=== PATIENT | female | born 1935 | race Caucasian/White ===

== ENCOUNTER → 2018-07-25 | Outpatient (REF) | payer MEDICARE, OTHER ==
[2018-07-25 13:53] LABS: BASO % 0.3 % (0.0-1.0); EOS # 0.1 10^3/uL (0.0-0.50); EOS % 1.2 % (0.0-3.0); HEMATOCRIT 42.5 % (36.0-47.0); HEMOGLOBIN 13.2 g/dl (12.0-15.5); IMMATURE GRANULOCYTE % 0.7 % (0-3.0); LYMPH # 1.5 10^3/uL (1.5-4.5); LYMPH % 17.8 % (24.0-44.0); MEAN CORPUSCULAR HEMOGLOBIN 32.4 pg (27.0-33.0); MEAN CORPUSCULAR HGB CONC 31.1 g/dl (32.0-36.5); MEAN CORPUSCULAR VOLUME 104.4 fl (80.0-96.0); MONO # 0.8 10^3/uL (0.0-0.8); MONO % 8.8 % (0.0-5.0); NEUTROPHILS # 6.1 10^3/uL (1.8-7.7); NEUTROPHILS % 71.2 % (36.0-66.0); PLATELET COUNT, AUTOMATED 184 10^3/uL (150-450); RED BLOOD COUNT 4.07 10^6/uL (4.00-5.40); RED CELL DISTRIBUTION WIDTH 13.8 % (11.5-14.5); WHITE BLOOD COUNT 8.6 10^3/uL (4.0-10.0)
[2018-07-25 14:51] LABS: ALBUMIN 3.7 GM/DL (3.2-5.2); ALKALINE PHOSPHATASE 93 U/L (45-117); ALT/SGPT 14 U/L (12-78); ANION GAP 3 MEQ/L (8-16); AST/SGOT 14 U/L (7-37); BILIRUBIN,TOTAL 0.6 MG/DL (0.2-1.0); BLOOD UREA NITROGEN 11 MG/DL (7-18); CALCIUM LEVEL 8.7 MG/DL (8.8-10.2); CARBON DIOXIDE LEVEL 31 MEQ/L (21-32); CHLORIDE LEVEL 110 MEQ/L (98-107); CREATININE FOR GFR 1.06 MG/DL (0.55-1.30); FOLATE 23.3 NG/ML; GLOMERULAR FILTRATION RATE 52.8 (>32); GLUCOSE, FASTING 104 MG/DL (70-100); POTASSIUM SERUM 3.7 MEQ/L (3.5-5.1); SODIUM LEVEL 144 MEQ/L (136-145); TOTAL PROTEIN 6.9 GM/DL (6.4-8.2)
[2018-07-25 16:36] LABS: ALBUMIN/GLOBULIN RATIO 1.16 (1.00-1.93)
[2018-07-26 14:18] LABS: CERULOPLASMIN 24.4 mg/dL (19.0-39.0)
[2018-07-28 14:14] LABS: COPPER PLASMA 108 ug/dL (72-166)
[2018-07-28 14:14] LABS: LEVETIRACETAM (KEPPRA) 15.2 ug/mL (10.0-40.0)
[2018-07-31 15:02] LABS: ALBUMIN 4.04 GM/DL (3.29-5.55); ALBUMIN % 58.6 % (55.8-66.1); ALPHA-1-GLOBULINS 0.36 GM/DL (0.17-0.41)
[2018-07-31 15:03] LABS: ALPHA-1-GLOBULIN % 5.2 % (2.9-4.9); ALPHA-2-GLOBULINS 0.72 GM/DL (0.42-0.99); ALPHA-2-GLOBULINS % 10.4 % (7.1-11.8); BETA-1-GLOBULINS 0.43 GM/DL (0.28-0.60); BETA-1-GLOBULINS % 6.3 % (4.7-7.2); BETA-2-GLOBULINS 0.33 GM/DL (0.19-0.55); BETA-2-GLOBULINS % 4.8 % (3.2-6.5); GAMMA GLOBULIN % 14.7 % (11.1-18.8); GAMMA GLOBULINS 1.01 GM/DL (0.65-1.58)
== END ==
LOC: M LABNEURO 10:37
DX: T56.4X2S Toxic effect of copper and its compounds, intentional self-harm, sequela (principal); G62.9 Polyneuropathy, unspecified; R56.9 Unspecified convulsions; E53.8 Deficiency of other specified B group vitamins
CPT/HCPCS: 82525

== ENCOUNTER → 2018-08-14 | Outpatient (CLI) | payer MEDICARE, OTHER | LOC: M RAD 14:41 | DX: Z86.73 Personal history of transient ischemic attack (TIA), and cerebral infarction without residual deficits (principal) | CPT/HCPCS: 93880 ==

== ENCOUNTER → 2018-11-24 | Outpatient (CLI) | payer MEDICARE, OTHER ==
--- NOTE | 2018-11-24 11:29 | REP ---
Unilateral arterial Doppler ultrasound right leg: History: Pain in the right thigh. Findings: Ankle brachial index is 1.1. Essentially normal biphasic wave forms are seen throughout the right lower extremity arteries. Fairly extensive plaquing is observed however. No evidence of high-grade stenosis seen. Velocity chart right lower extremity arteries: Right CF A 101 cm/S Profunda 101 Proximal SFA 118, 78 Mid SFA 90, 108 Distal SFA 86, 70 Popliteal 60 Proximal AT A 67 Tibioperoneal trunk 65 Proximal RESTAURANT RECRUITER 70 Distal RESTAURANT RECRUITER 60 Distal AT A 55, 54, 11. Cm/S Electronically Signed by Sanjeev Cook MD 11/24/2018 11:20 A
== END ==
LOC: M RAD 09:48
PROVIDERS: ATTEND Surgery Vascular Surgery
DX: I73.9 Peripheral vascular disease, unspecified (principal); M79.651 Pain in right thigh

== ENCOUNTER → 2018-12-06 | Outpatient (CLI) | payer MEDICARE, OTHER ==
[2018-12-06 16:14] LABS: BASO % 0.3 % (0.0-1.0); EOS % 0.6 % (0.0-3.0); HEMATOCRIT 36.1 % (36.0-47.0); HEMOGLOBIN 11.8 g/dl (12.0-15.5); LYMPH # 1.5 10^3/uL (1.5-4.5); LYMPH % 21.1 % (24.0-44.0); MEAN CORPUSCULAR HEMOGLOBIN 33.1 pg (27.0-33.0); MEAN CORPUSCULAR HGB CONC 32.7 g/dl (32.0-36.5); MEAN CORPUSCULAR VOLUME 101.4 fl (80.0-96.0); MONO # 0.8 10^3/uL (0.0-0.8); MONO % 11.8 % (0.0-5.0); NEUTROPHILS # 4.5 10^3/uL (1.8-7.7); NEUTROPHILS % 65.6 % (36.0-66.0); PLATELET COUNT, AUTOMATED 188 10^3/uL (150-450); RED BLOOD COUNT 3.56 10^6/uL (4.00-5.40); WHITE BLOOD COUNT 6.9 10^3/uL (4.0-10.0)
[2018-12-06 16:31] LABS: CALCIUM LEVEL 9.1 MG/DL (8.8-10.2); CREATININE FOR GFR 1.52 MG/DL (0.55-1.30); GLOMERULAR FILTRATION RATE 34.9 (>32); POTASSIUM SERUM 3.1 MEQ/L (3.5-5.1)
== END ==
LOC: M LAB 15:05
PROVIDERS: ATTEND Surgery Vascular Surgery
DX: I70.213 Atherosclerosis of native arteries of extremities with intermittent claudication, bilateral legs (principal)

== ENCOUNTER → 2018-12-25 | Outpatient (CLI) | payer MEDICARE, OTHER ==
[~2018-12-25] MED LIST: HEPARIN 1,000 UNITS/ML 10ML VIAL (FOR RADIOLOGY& DIALYSIS ONLY) As Ordered ONE; ISOVUE-300 61% 50ML VIAL (Q9967) As Ordered ONE; LIDOCAINE 2% MDV 20 ML VIAL As Ordered ONE; MIDAZOLAM INJ 2 MG/2 ML VIAL (J2250) As Ordered ONE; fentaNYL 100 MCG/2 ML INJECTION (J3010) As Ordered ONE
--- NOTE | 2019-01-10 11:38 | REPIR ---
DATE OF PROCEDURE: 12/25/2018 ATTENDING SURGEON: Dr. April Melendez SIZING MACHINE TENDER: Brinda Robles and Yue Fierro PREOPERATIVE DIAGNOSIS: Right lower extremity pain. POSTOPERATIVE DIAGNOSIS: Right lower extremity pain. PROCEDURE: Aortogram, iliofemoral angiogram, selective right common femoral artery catheter placement with right lower extremity angiogram, MYNX closure of the left common femoral arteriotomy. INDICATION: The patient is an 83 year old female with right lower extremity pain in the thigh who underwent an ultrasound which showed mild to moderate diffuse atherosclerotic arterial occlusive disease in the right lower extremity. The patient will undergo a right lower extremity angiogram with possible angioplasty stent and/or atherectomy. Risks, benefits and alternative treatment options were discussed with the patient. ANESTHESIA: Local with 10 mL of 2% lidocaine. FLUORO TIME: 1.0 minutes. CONTRAST: 12 mL of Isovue-300. HEPARIN: None. COMPLICATIONS: None. DRAINS: None. SPECIMENS: None. IMPLANT: Left common femoral arteriotomy closure with a MYNX closure device. DESCRIPTION OF PROCEDURE: The patient was taken to the angiography suite, placed supine on the angiography room table and then prepped and draped in a standard surgical fashion. The left common femoral artery was cannulated with a micropuncture needle after anesthetizing the overlying skin with 2% lidocaine. The micropuncture wire was advanced through the micropuncture needle which was upsized to a micropuncture sheath. A Bentson wire was advanced through the micropuncture sheath which was upsized to a 5-Wolof sheath. An Omni flush catheter was placed in the aorta and an aortogram was performed. The catheter was pulled down to the level of the bifurcation of iliac arteries and an iliofemoral angiogram was performed. The catheter was directed over the bifurcation of the iliac arteries and placed in the right common femoral artery and a selective right lower extremity angiogram was performed. This showed no intervention was required. The catheters and wires were removed and a MYNX closure device was used to close the arteriotomy in the left common femoral artery with an additional 10 minutes of adjunctive pressure applied for hemostasis. Dressings were then applied. The patient tolerated the procedure well. All instrument, sponge, and needle counts were correct at the end of the case. There were no complications. Dr. Melendez was present for and directed the entire case. The patient was transferred to the holding area and subsequently discharged in stable condition.
== END | disposition home or self-care (01) ==
LOC: M IRPRO 07:40
PROVIDERS: ATTEND Surgery Vascular Surgery
DX: I70.201 Unspecified atherosclerosis of native arteries of extremities, right leg (principal)
CPT/HCPCS: 36246; 75710; C1760; C1769; C1887; C1894; G0269; J2250; J3010; Q9967

== ENCOUNTER 2019-04-26 15:01 | Outpatient (CLI) | payer MEDICARE, OTHER ==
[~2019-04-26] VITALS: Ht 157.5 cm; Wt 56.9 kg
[2019-04-26] MEDS ORDERED: ZOLEDRONIC ACID 5 MG in APPROPRIATE DILUENT 1 EA IV ONE (16:00)
[2019-04-26 16:04] VITALS: BP 135/66
[2019-04-26 16:42] VITALS: BP 147/70
== END 2019-04-26 17:00 | disposition home or self-care (01) ==
LOC: M INFU 15:01
PROVIDERS: ATTEND Internal Medicine Endocrinology, Diabetes & Metabolism
DX: M81.0 Age-related osteoporosis without current pathological fracture (principal)
CPT/HCPCS: 96365; J3489

== ENCOUNTER → 2019-10-23 | Outpatient (CLI) | payer MEDICARE, OTHER ==
--- NOTE | 2019-10-23 15:15 | REP ---
BILATERAL LOWER EXTREMITY DUPLEX DOPPLER ARTERIAL ULTRASOUND: Real-time sonographic evaluation and duplex Doppler interrogation of bilateral lower extremity arterial systems is performed. Mild scattered partially calcified plaquing is seen bilaterally. There is no duplex Doppler sonographic evidence of hemodynamically significant stenosis bilaterally. Triphasic and biphasic waveforms are seen diffusely bilaterally. Right Peak Left Peak Systolic Velocity Systolic velocity Common femoral artery 89 cm/s 105 cm/s Profunda 71 cm/s 102 cm/s Proximal SFA 118 cm/s 99 cm/s Mid SFA 93 cm/s 123 cm/s Distal SFA 59 cm/s 68 cm/s Popliteal 59 cm/s 69 cm/s Proximal MAXX 51 cm/s 36 cm/s Tibial peroneal trunk 53 cm/s 65 cm/s Proximal CLINICAL NURSE LEADER 79 cm/s 100 cm/s Distal CLINICAL NURSE LEADER 90 cm/s 80 cm/s Distal MAXX 123 cm/s 53 cm/s IMPRESSION: Scattered partially calcified plaquing bilaterally. No duplex Doppler sonographic evidence of hemodynamically significant stenosis. Unreviewed
== END ==
LOC: M RAD 12:44
PROVIDERS: ATTEND Physician Assistant
DX: I70.213 Atherosclerosis of native arteries of extremities with intermittent claudication, bilateral legs (principal)

== ENCOUNTER 2019-11-18 12:39 | Inpatient (IN) | payer MEDICARE, OTHER ==
[~2019-11-18] VITALS: Ht 157.5 cm; Wt 45.5 kg
[2019-11-18 15:30] VITALS: BP 118/52
[2019-11-18] MEDS ORDERED: XARE15TA PO (16:27)
[2019-11-18] MEDS ORDERED: VENTAER INH (16:27)
[2019-11-18] MEDS ORDERED: DONE10TA90 PO (16:27)
[2019-11-18] MEDS ORDERED: IRON65TA2 PO (16:27)
[2019-11-18] MEDS ORDERED: DIGO0.123 PO (16:27)
[2019-11-18] MEDS ORDERED: ESCI20TA PO (16:27)
[2019-11-18] MEDS ORDERED: PANT-23 PO (16:27)
[2019-11-18] MEDS ORDERED: METO25TA4 PO (16:27)
[2019-11-18] MEDS ORDERED: PRESCAP PO (16:27)
[2019-11-18] MEDS ORDERED: ATOR1TAB19 PO (16:27)
[2019-11-18] MEDS ORDERED: VITA1CAP25 PO (16:27)
[2019-11-18] MEDS ORDERED: LEVE250T5 PO (16:27)
[2019-11-18] MEDS ORDERED: CYCL10TA PO (16:27)
[2019-11-18] MEDS ORDERED: POTA10CA32 PO (16:27)
[2019-11-18] MEDS ORDERED: METO1TAB7 PO (16:27)
[2019-11-18] MEDS ORDERED: ZOFR4TAB16 PO (16:27)
[2019-11-18] MEDS ORDERED: RANI15TA PO (16:27)
[2019-11-18] MEDS ORDERED: MELA5CAP2 PO (16:27)
[2019-11-18] MEDS ORDERED: TRAM50TA2 PO (16:27)
[2019-11-18 16:30] LABS: BASO % 0.2 % (0.0-1.0); EOS # 0.1 10^3/uL (0.0-0.5); EOS % 1.5 % (0.0-3.0); HEMATOCRIT 22.8 % (36.0-47.0); LYMPH # 1.3 10^3/uL (1.5-5.0); LYMPH % 23.8 % (24.0-44.0); MEAN CORPUSCULAR HEMOGLOBIN 25.2 pg (27.0-33.0); MEAN CORPUSCULAR HGB CONC 28.1 g/dl (32.0-36.5); MEAN CORPUSCULAR VOLUME 89.8 fl (80.0-96.0); MONO # 0.6 10^3/uL (0.0-0.8); MONO % 10.8 % (0.0-5.0); NEUTROPHILS # 3.4 10^3/uL (1.5-8.5); NEUTROPHILS % 63.3 % (36.0-66.0); PLATELET COUNT, AUTOMATED 237 10^3/uL (150-450); RED BLOOD COUNT 2.54 10^6/uL (4.00-5.40); WHITE BLOOD COUNT 5.4 10^3/uL (4.0-10.0)
[2019-11-18 16:32] LABS: HEMOGLOBIN 6.4 g/dl (12.0-15.5)
[2019-11-18 16:41] LABS: INR 1.23; PROTHROMBIN TIME 15.2 SECONDS (11.8-14.0)
[2019-11-18 16:42] LABS: PARTIAL THROMBOPLASTIN TIME 33.3 SECONDS (25.0-38.4)
[2019-11-18] MEDS ORDERED: SLF 3 ML SYR IV PRN (17:00)
[2019-11-18 17:02] LABS: ALBUMIN 2.7 GM/DL (3.2-5.2); BILIRUBIN,TOTAL 0.1 MG/DL (0.2-1.0); CALCIUM LEVEL 8.4 MG/DL (8.8-10.2); CREATININE FOR GFR 1.24 MG/DL (0.55-1.30); TOTAL PROTEIN 5.2 GM/DL (6.4-8.2)
[2019-11-18 18:00] LABS: PERCENT SATURATION 2.4 % (13.2-45.0)
[2019-11-18] MEDS ORDERED: FUROSEMIDE 20 MG/2 ML VIAL (J1940) IV ONE (19:30)
--- NOTE | 2019-11-18 19:52 | HPEPDOC ---
General Date of Admission Nov 18, 2019 at 15:28 Date of Service: Nov 18, 2019 Chief Complaint The patient is a 84-year-old female admitted with a reason for visit of Gi Bleed. Source: Patient, Old records Exam Limitations: Dementia History of Present Illness 84 year old female went to the ED of [facility] as she had 3 syncopal episodes at home yesterday. Work up the ED at outside hospital showed a Hb of 6.4. Her last Hbs from jul 2019 was 10.7 and 12.7 . She was found to be guaic positive int ED. So she was transferred here for symptomatic anemia due to GIB. Patient tells me that she has been feeling very weak and light headed for t he past 1 month. She has had 9 presyncopal and syncopal episodes in the past 3 weeks. The during the first one she fell and hit her head on the floor about 2 to 3 weeks ago. Her legs has been weak and it would suddenly give way and that would cause her to fall. She says she has been having soft back stools for the past 2 months. She says that she does not take the iron as it makes her constipated. She does take Vit B12 shots. She denies any abdominal pain or vomiting. She was admitted for symtomatic anemia from possible chronic GIB and syncopal episodes. Home Medications Scheduled Atorvastatin Calcium (Atorvastatin Calcium) 10 Mg Tablet, 10 MG PO DAILY, (Reported) Cholecalciferol (Vitamin D3) (Vitamin D3) 50,000 Unit Capsule, 50,000 UNIT PO QWEEK, (Reported) Cyclobenzaprine HCl (Cyclobenzaprine HCl) 10 Mg Tablet, 10 MG PO TID, (Reported) Digoxin (Digoxin) 125 Mcg Tablet, 125 MCG PO DAILY, (Reported) Donepezil HCl (Donepezil HCl) 10 Mg Tablet, 10 MG PO DAILY, (Reported) Escitalopram Oxalate (Escitalopram Oxalate) 20 Mg Tablet, 20 MG PO DAILY, (Reported) Ferrous Sulfate (Iron) 325 Mg Tablet, 325 MG PO DAILY, (Reported) Levetiracetam (Levetiracetam) 250 Mg Tablet, 250 MG PO BID, (Reported) Melatonin (Melatonin) 5 Mg Capsule, 5 MG PO QHS, (Reported) Pantoprazole Sodium (Pantoprazole Sodium) 40 Mg Tablet.dr, 40 MG PO DAILY, (Reported) Potassium Chloride (Potassium Chloride) 10 Meq Capsule.er, 10 MEQ PO DAILY, (Reported) TAKES WITH DIURETIC PRN - WILL VERIFY WITH Ranitidine Hcl (Ranitidine HCl) 150 Mg Tablet, 1 TAB PO BID, (Reported) Rivaroxaban (Xarelto) 15 Mg Tablet, 15 MG PO DAILY, (Reported) Vit A/Vit C/Vit E/Zinc/Copper (Preservision Areds Softgel) 1 Each Capsule, 1 CAP PO BID, (Reported) Scheduled PRN Albuterol Sulfate (Ventolin Hfa) 18 Gm Hfa.aer.ad, 2 PUFF INH Q4-6HP PRN for wheezing, (Reported) Metoprolol Succinate (Metoprolol Succinate) 50 Mg Tab.er.24h, 50 MG PO DAILY PRN for HYPERTENSION, (Reported) Metoprolol Tartrate (Metoprolol Tartrate) 25 Mg Tablet, 25 MG PO DAILY PRN for H YPERTENSION, (Reported) Ondansetron HCl (Zofran) 4 Mg Tablet, 4 MG PO DAILY PRN for NAUSEA OR VOMITING, (Reported) Tramadol HCl (Tramadol HCl) 50 Mg Tablet, 50 MG PO Q8H PRN for PAIN, (Reported) Allergies Coded Allergies: propoxyphene (Verified Allergy, Unknown, 04/26/19) Past Medical History Medical History Colon cancer s/p surgery and chemo in the remote past Dementia, CKD 3 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 Paroxysmal Afib on xarelto pacemaker in place Hypertension GERD Hiatal hernia s/p hiatal hernia surgery Bilateral hip replacement Appendectomy Hystrectomy Small bowel resection chronic back pain Iron deficiency Vit B12 deficiency. Family History Significant Family History: No pertinent family hx patient said parent of old age. Other family member's with some medical issues could not remember what. Social History * Smoker: Denies Alcohol: Denies Drugs: denies A-FIB/CHADSVASC A-FIB History Current/History of A-Fib/PAF?: Yes Current PO Anticoag Therapy: Yes Review of Systems Constitutional: Reports: Weakness; Denies: Chills, Fever, Night Sweats Eyes: Denies: Pain, Vision change ENT: Denies: Head Aches, Ear Pain, Dysphagia Skin: Denies: Rash, Lesions, Breakdown Pulmonary: Denies: Dyspnea, Cough Cardiovascular: Reports: Lt Headedness; Denies: Chest Pain, Palpitations, Orthopnea, Paroxysmal Noc. Dyspnea Gastrointestinal: Reports: Other Symptoms (soft black stools); Denies: Nausea, Vomiting, Abdominal Pain, Diarrhea Genitourinary: Denies: Dysuria, Frequency, Incontinence, Retention Hematologic: Denies: Bruising, Bleeding Excessively Musculoskeletal: Reports: Back Pain Psych: Reports: Mood Normal, Memory Issues Physical Examination General Exam: Positive: Alert, Cooperative, No Acute Distress Eye Exam: Positive: PERRLA, Conjunctiva & lids normal, EOMI; Negative: Sclera icteric ENT Exam: Positive: Atraumatic, Mucous membr. moist/pink, Pharynx Normal Neck Exam: Positive: Supple, Other (bilateral carotid bruit present); Negative: JVD, thyromegaly Chest Exam: Positive: Clear to auscultation, Normal air movement Heart Exam: Positive: Rate Normal, Regular Rhythm, Normal S1, Normal S2, Murmurs (sysolic murmur at eh perasternal area); Negative: Rubs Telemetry: Positive: No significant arrhythmia, Sinus Abdomen Exam: Positive: Normal bowel sounds, Soft; Negative: Tenderness, Hepatospenomegaly Extremity Exam: Positive: Normal pulses; Negative: Clubbing, Cyanosis, Edema Skin Exam: Positive: Nl turgor and temperature; Negative: Breakdown, Lesion Neuro Exam: Positive: Normal Gait, Normal Speech, Cranial Nerves 3-12 NL, Reflexes 2+ Vital Signs Vital Signs Date Time Temp Pulse Resp B/P (MAP) Pulse Ox O2 Delivery O2 Flow Rate FiO2 11/18/19 16:00 2.0 11/18/19 15:30 96.8 91 24 118/52 (74) 100 Nasal Cannula Laboratory Data Labs 24H Laboratory Tests 2 11/18/19 16:18: Immature Granulocyte % (Auto) 0.4, Neutrophils (%) (Auto) 63.3, Lymphocytes (%) (Auto) 23.8L, Monocytes (%) (Auto) 10.8H, Eosinophils (%) (Auto) 1.5, Basophils (%) (Auto) 0.2, Neutrophils # (Auto) 3.4, Lymphocytes # (Auto) 1.3L, Monocytes # (Auto) 0.6, Eosinophils # (Auto) 0.1, Basophils # (Auto) 0.0, Nucleated Red Blood Cells % (auto) 0.0, Prothrombin Time 15.2H, Prothromb Time International Ratio 1.23, Activated Partial Thromboplast Time 33.3, Anion Gap 5L, Glomerular Filtration Rate 44.0, Calcium Level 8.4L, Total Bilirubin 0.1L, Aspartate Amino Transf (AST/SGOT) 10, Alanine Aminotransferase (ALT/SGPT) 8L, Alkaline Phosphatase 51, Total Protein 5.2L, Albumin 2.7L, Albumin/Globulin Ratio 1.08 11/18/19 17:17: Iron Level 7L, Total Iron Binding Capacity 289, Transferrin % Saturation 2.4L, Ferritin 6L CBC/BMP Laboratory Tests 11/18/19 16:18 Assessment/Plan 84 year old female went to the ED of [facility] as she had 3 syncopal episodes at home yesterday. Work up the ED at outside hospital showed a Hb of 6.4. Her last Hbs from jul 2019 was 10.7 and 12.7 . She was found to be guaic positive int ED. So she was transferred here for symptomatic anemia due to GIB. Patient tells me that she has been feeling very weak and light headed for the past 1 month. She has had 9 presyncopal and syncopal episodes in the past 3 weeks. The during the first one she fell and hit her head on the floor about 2 to 3 weeks ago. Her legs has been weak and it would suddenly give way and that would cause her to fall. She says she has been having soft back stools for the past 2 months. She says that she does not take the iron as it makes her constipated. She does take Vit B12 shots. She denies any abdominal pain or vomiting. She was admitted for symtomatic anemia from possible chronic GIB and syncopal episodes. Symptomatic anemia possibly due to chronic GIB bleed Her iron levels are very low and her guic was postive at outside hospital Will need Colonoscopy/ EGD Has h/o colon ca.in the remote past. will give 2 units of PRBC with lasix in between. will give PPI. Stop Xarelto. last dose 11/18/19 will consult GI. Hiatal hernia/ GERD h/o hiatal hernia surgery PPI Syncope possibly due to severe anemia but with h/o afib will monitor under telemetry CT head from outside hospital on 11/17/19 was negative for any acute event. will get carotid dopplers. Paroxysmal Afib now in sinus Has pacemeker in place. will continue digozin will not give any metoprolol at present as Bp was low at outside hospital and here well controlled. Hold xarelto. Dementia continue donepezil, escitalopram Seizure disorder contiue keppra h/o TIAs and [place] will continue statin, Plan / VTE VTE Prophylaxis Ordered?: No NIKHIL COLLIER MD Nov 18, 2019 19:52
[2019-11-18 20:00] VITALS: BP 120/70
[2019-11-18] MEDS ORDERED: ALBUTEROL 90 MCG/ACT 8GM HFA INHALER INH PRN (20:00)
[2019-11-18 21:45] VITALS: BP 118/60
[2019-11-18] MEDS: SLF 3 ML SYR IV SCH (21:54)
[2019-11-18] MEDS: PANTOPRAZOLE 40MG INJ (PROTONIX) (C9113) IV SCH (21:54)
[2019-11-18] MEDS: levETIRAcetam 250MG TABLET (KEPPRA) PO SCH (21:54)
[2019-11-18 22:00] VITALS: BP 120/64
[2019-11-18 22:45] VITALS: BP 116/64
[2019-11-18 23:45] VITALS: BP 116/68
[2019-11-19] VITALS (13 sets, daily range): BP systolic 115–152; BP diastolic 58–84
[2019-11-19] MEDS: SLF 3 ML SYR IV SCH ×3 (05:23→22:17)
[2019-11-19] MEDS: PANTOPRAZOLE 40MG INJ (PROTONIX) (C9113) IV SCH ×2 (08:11→22:16)
[2019-11-19] MEDS: levETIRAcetam 250MG TABLET (KEPPRA) PO SCH ×2 (08:11→22:16)
[2019-11-19] MEDS: DONEPEZIL 5 MG TAB PO SCH (08:12)
[2019-11-19] MEDS: ESCITALOPRAM OXALATE 10 MG TAB (LEXAPRO) PO SCH (08:12)
[2019-11-19] MEDS: ATORVASTATIN 10 MG TAB PO SCH (08:12)
[2019-11-19] MEDS: DIGOXIN 0.125 MG TAB PO SCH (08:12)
[2019-11-19 08:51] LABS: BASO % 0.3 % (0.0-1.0); EOS # 0.1 10^3/uL (0.0-0.5); EOS % 1.8 % (0.0-3.0); HEMATOCRIT 33.9 % (36.0-47.0); HEMOGLOBIN 10.2 g/dl (12.0-15.5); LYMPH % 16.1 % (24.0-44.0); MEAN CORPUSCULAR HEMOGLOBIN 26.9 pg (27.0-33.0); MEAN CORPUSCULAR HGB CONC 30.1 g/dl (32.0-36.5); MEAN CORPUSCULAR VOLUME 89.4 fl (80.0-96.0); MONO # 0.6 10^3/uL (0.0-0.8); MONO % 9.3 % (0.0-5.0); NEUTROPHILS # 4.4 10^3/uL (1.5-8.5); NEUTROPHILS % 72.2 % (36.0-66.0); PLATELET COUNT, AUTOMATED 268 10^3/uL (150-450); RED BLOOD COUNT 3.79 10^6/uL (4.00-5.40)
[2019-11-19 09:21] LABS: CALCIUM LEVEL 8.5 MG/DL (8.8-10.2); CREATININE FOR GFR 1.3 MG/DL (0.55-1.30); GLOMERULAR FILTRATION RATE 41.6 (>32); POTASSIUM SERUM 3.8 MEQ/L (3.5-5.1)
--- NOTE | 2019-11-19 10:37 | IPNPDOC ---
Subjective Date Seen The patient was seen on 11/19/19. Subjective Chief Complaint/HPI No acute events overnight. patient feeing well. received 2 units of PRBC. Denies any abdominal pain, no bowel movements. Objective Physical Examination General Exam: Positive: Alert, Cooperative, No Acute Distress Eye Exam: Positive: PERRLA, Conjunctiva & lids normal, EOMI; Negative: Sclera icteric ENT Exam: Positive: Atraumatic, Mucous membr. moist/pink, Pharynx Normal Neck Exam: Positive: Supple, Other (bilateral carotid bruit present); Negative: JVD, thyromegaly Chest Exam: Positive: Clear to auscultation, Normal air movement Heart Exam: Positive: Rate Normal, Regular Rhythm, Normal S1, Normal S2, Murmurs (sysolic murmur at perasternal area); Negative: Rubs Telemetry: Positive: No significant arrhythmia, Sinus Abdomen Exam: Positive: Normal bowel sounds, Soft; Negative: Tenderness, Hepatospenomegaly Extremity Exam: Positive: Normal pulses; Negative: Clubbing, Cyanosis, Edema Skin Exam: Positive: Nl turgor and temperature; Negative: Breakdown, Lesion Neuro Exam: Positive: Normal Gait, Normal Speech, Cranial Nerves 3-12 NL, Reflexes 2+ Assessment /Plan Assessment 84 year old female went to the ED of [facility] as she had 3 syncopal episodes at home yesterday. Work up the ED at outside hospital showed a Hb of 6.4. Her last Hbs from jul 2019 was 10.7 and 12.7 . She was found to be guaic positive int ED. So she was transferred here for symptomatic anemia due to GIB. Patient tells me that she has been feeling very weak and light headed for the past 1 month. She has had 9 presyncopal and syncopal episodes in the past 3 weeks. The during the first one she fell and hit her head on the floor about 2 to 3 weeks ago. Her legs has been weak and it would suddenly give way and that would cause her to fall. She says she has been having soft back stools for the past 2 months. She says that she does not take the iron as it makes her constipated. She does take Vit B12 shots. She denies any abdominal pain or vomiting. She was admitted for symptomatic anemia from possible chronic GIB and syncopal episodes. Symptomatic anemia possibly due to chronic GIB bleed Her iron levels are very low and her guaiac was positive at outside hospital Will need Colonoscopy/ EGD Has h/o colon ca.in the remote past. given 2 units of PRBC with lasix in between. monitor HH will give PPI. Stop Xarelto. last dose 11/18/[address] Santiago. Hiatal hernia/ GERD h/o hiatal hernia surgery PPI Syncope possibly due to severe anemia but with h/o afib will monitor under telemetry CT head from outside hospital on 11/17/19 was negative for any acute event. will get carotid dopplers. Paroxysmal Afib now in sinus Has pacemaker in place. will continue digoxin will not give any metoprolol at present as Bp was low at outside hospital and here well controlled. Hold xarelto. Dementia continue donepezil, escitalopram Seizure disorder continue keppra h/o TIAs and Stroke will continue statin Hypertension BP rising today will restart metoprolol VS, I&O, 24H, Fishbone Vital Signs/I&O Vital Signs Date Time Temp Pulse Resp B/P (MAP) Pulse Ox O2 Delivery O2 Flow Rate FiO2 11/19/19 05:33 97.5 105 18 150/84 97 Room Air 11/19/19 04:00 3.0 I&O- Last 24 Hours up to 6 AM 11/19/19 05:59 Intake Total 820 ml Output Total 2000 ml Balance -1180 ml Laboratory Data 24H LABS Laboratory Tests 2 11/18/19 16:18: Immature Granulocyte % (Auto) 0.4, Neutrophils (%) (Auto) 63.3, Lymphocytes (%) (Auto) 23.8L, Monocytes (%) (Auto) 10.8H, Eosinophils (%) (Auto) 1.5, Basophils (%) (Auto) 0.2, Neutrophils # (Auto) 3.4, Lymphocytes # (Auto) 1.3L, Monocytes # (Auto) 0.6, Eosinophils # (Auto) 0.1, Basophils # (Auto) 0.0, Nucleated Red Blood Cells % (auto) 0.0, Prothrombin Time 15.2H, Prothromb Time International Ratio 1.23, Activated Partial Thromboplast Time 33.3, Anion Gap 5L, Glomerular Filtration Rate 44.0, Calcium Level 8.4L, Total Bilirubin 0.1L, Aspartate Amino Transf (AST/SGOT) 10, Alanine Aminotransferase (ALT/SGPT) 8L, Alkaline Phosphatase 51, Total Protein 5.2L, Albumin 2.7L, Albumin/Globulin Ratio 1.08 11/18/19 17:17: Iron Level 7L, Total Iron Binding Capacity 289, Transferrin % Saturation 2.4L, Ferritin 6L CBC/BMP Laboratory Tests 11/18/19 16:18 NIKHIL COLLIER MD Nov 19, 2019 06:49
[2019-11-19] MEDS: METOPROLOL SUCC (TopROL XL) 50MG **XL** TAB PO SCH (11:54)
--- NOTE | 2019-11-19 12:19 | REP ---
DUPLEX CAROTID SONOGRAPHY: HISTORY: Carotid bruit. Syncope. COMPARISON STUDY: August 14, 2018 FINDINGS: Antegrade flow was observed in both vertebral arteries. RIGHT CAROTID: The right common carotid artery shows minimal diffuse intimal thickening. There is mild mixed plaquing in the bulb, proximal ICA, and proximal ECA on the right side on two-dimensional scanning. This appears unchanged. Color flow and spectral Doppler interrogation show normal waveforms and velocities. VELOCITY CHART RIGHT CAROTID: Right CCA PSV 79 cm/s Right ICA PSV 75 EDV 27 Right ECA PSV 78 Right ICA/CCA ratio normal 1.0. IMPRESSION: Less than 50% category narrowing in the right ICA by Doppler velocity criteria. Doppler velocities are normal. LEFT CAROTID: The left common carotid artery shows mild diffuse intimal thickening. There is moderate mixed plaquing in the left carotid bulb and proximal ICA and ECA on two-dimensional scanning. Color flow and spectral Doppler interrogation are unremarkable. VELOCITY CHART LEFT CAROTID: Left CCA PSV 77 cm/s Left ICA PSV 96 EDV 17 Left ECA PSV 80 Left ICA/CCA ratio normal 1.2. IMPRESSION: Less than 50% category narrowing by Doppler velocity criteria. Doppler velocities are slightly higher than on the prior study. Electronically Signed by Sanjeev Cook MD 11/19/2019 12:26 P
[2019-11-19 12:55] LABS: HEMATOCRIT 36.3 % (36.0-47.0); HEMOGLOBIN 10.9 g/dl (12.0-15.5)
[2019-11-19 18:16] LABS: HEMATOCRIT 35.3 % (36.0-47.0)
[2019-11-19] MEDS ORDERED: IRON SUCROSE 500 MG in NS 250 ML IV ONE (20:00)
[2019-11-19] MEDS: CYANOCOBALAMIN 1,000 MCG/ML VIAL (J3420) IM SCH (22:16)
[2019-11-20] VITALS (7 sets, daily range): BP systolic 139–169; BP diastolic 62–82
[2019-11-20 00:09] LABS: HEMATOCRIT 30.9 % (36.0-47.0); HEMOGLOBIN 9.7 g/dl (12.0-15.5)
[2019-11-20] MEDS: SLF 3 ML SYR IV SCH ×3 (04:36→20:43)
[2019-11-20 05:49] LABS: BASO % 0.4 % (0.0-1.0); EOS # 0.2 10^3/uL (0.0-0.5); HEMATOCRIT 33.6 % (36.0-47.0); HEMOGLOBIN 10.4 g/dl (12.0-15.5); LYMPH # 1.8 10^3/uL (1.5-5.0); LYMPH % 23.4 % (24.0-44.0); MEAN CORPUSCULAR HEMOGLOBIN 27.3 pg (27.0-33.0); MEAN CORPUSCULAR VOLUME 88.2 fl (80.0-96.0); MONO # 0.9 10^3/uL (0.0-0.8); MONO % 11.5 % (0.0-5.0); NEUTROPHILS # 4.7 10^3/uL (1.5-8.5); NEUTROPHILS % 62.2 % (36.0-66.0); PLATELET COUNT, AUTOMATED 291 10^3/uL (150-450); RED BLOOD COUNT 3.81 10^6/uL (4.00-5.40); WHITE BLOOD COUNT 7.6 10^3/uL (4.0-10.0)
[2019-11-20 06:13] LABS: CALCIUM LEVEL 8.5 MG/DL (8.8-10.2); CREATININE FOR GFR 1.11 MG/DL (0.55-1.30); POTASSIUM SERUM 4.3 MEQ/L (3.5-5.1)
[2019-11-20] MEDS: levETIRAcetam 250MG TABLET (KEPPRA) PO SCH ×2 (08:22→20:42)
[2019-11-20] MEDS: ESCITALOPRAM OXALATE 10 MG TAB (LEXAPRO) PO SCH (08:22)
[2019-11-20] MEDS: DIGOXIN 0.125 MG TAB PO SCH (08:22)
[2019-11-20] MEDS: PANTOPRAZOLE 40MG INJ (PROTONIX) (C9113) IV SCH ×2 (08:22→20:42)
[2019-11-20] MEDS: DONEPEZIL 5 MG TAB PO SCH (08:22)
[2019-11-20] MEDS: METOPROLOL SUCC (TopROL XL) 50MG **XL** TAB PO SCH (08:23)
[2019-11-20] MEDS: ATORVASTATIN 10 MG TAB PO SCH (08:23)
[2019-11-20] MEDS: CYANOCOBALAMIN 1,000 MCG/ML VIAL (J3420) IM SCH (10:09)
--- NOTE | 2019-11-20 15:18 | IPNPDOC ---
Text Note Date of Service The patient was seen on 11/20/19. NOTE Subjective: -Doing well this morning, no complaints -Was seen by Dr. Santiago, has already started taking the golytely for scoping tomorrow Objective: Vitals: Hemodynamically stable and afebrile, see below General: Awake, alert, NAD HEENT: NCAT, PERRLA, EOMI, MMM Neck: No JVD or adenopathy, supple Pulm: CTAB Cardaic: 2/6 systolic murmur, otherwise RRR Abd: Normoactive, soft, nontender and no organomegaly or masses palpated Ext: WWP, no LE edema Labs: Hgb 10.4, Hct 33.6, WBC 7.6, Platelets 291, K 4.3, Cr 1.11 84 year old W who was admitted as a transfer from [place] ED for syncope and found to have symptomatic anemia due to GIB with FOBT, now s/p pRBCs transfusion and pending EGD/colonoscopy tomorrow. Symptomatic anemia -Likely 2/2 chronic GIB bleed -s/p IV iron and IV vitamin B12 -pending Colonoscopy/ EGD tomorrow with ongoing prep today, with a remote history of colon cancer -continue PPI. -continue holding Xarelto -consulted GI, Dr Santiago, pending scoping tomorrow Hiatal hernia/ GERD h/o hiatal hernia surgery PPI Syncope -Likely due to severe anemia, however with a h/o afib, will monitor with telemetry -CT head from outside hospital on 11/17/19 was negative for any acute events -no clinically significant stenotic disease on carotid dopplers. Paroxysmal Afib -currently in sinus -s/p PPM -continue digoxin -continue metoprolol -continue holding Xarelto Dementia -continue donepezil, escitalopram Seizure disorder -continue keppra h/o TIAs and Stroke -continue statin -hold xarelto in the setting of an ongoing GIB Hypertension -continue home metoprolol Dispo: PCU pending EGD/colo tomorrow for GIB VS,Fishbone, I+O VS, Fishbone, I+O Laboratory Tests 11/19/19 17:57 11/19/19 23:49 11/20/19 05:34 Vital Signs Date Time Temp Pulse Resp B/P (MAP) Pulse Ox O2 Delivery O2 Flow Rate FiO2 11/20/19 12:00 97.6 70 16 145/73 (97) 95 Room Air 11/19/19 08:00 3.0 I&O- Last 24 Hours up to 6 AM 11/20/19 06:00 Intake Total 1240 ml Output Total 700 ml Balance 540 ml RAFAEL SANCHEZ MD Nov 20, 2019 15:18
[2019-11-20] MEDS ORDERED: GOLYTELY SOLN 4000 ML BTL PO ONE (17:00)
--- NOTE | 2019-11-20 23:44 | CR ---
DATE OF CONSULTATION: 11/19/2019 An 84-year white female who presents to emergency room with multiple syncopal episodes. The patient was found to have a hemoglobin of 6.4. No complaints of abdominal pain, weight loss, change in bowel habits, fevers, night sweats, shaking chills, melena, hematochezia, or change in bowel habits. No apparent history of weight loss. She is status post subtotal colectomy for colon cancer in 2011. The patient is being seen for her anemia of unclear etiology. MEDICATIONS AT HOME: Include atorvastatin, digoxin, iron, Protonix, potassium, ranitidine and the patient is on Xarelto. PAST MEDICAL/SURGICAL HISTORY: 1, Positive for colon cancer, status post surgery. 2. Mild dementia. 3. Chronic renal disease. 4. Transient ischemic attacks (TIAs) and CVA. No residual. 5. Seizure. 6. History of brain aneurysm surgery 15 years ago. 7. Paroxysmal atrial fibrillation, on Xarelto. 8. Hypertension. 9. Reflux. 10. Hiatal hernia repair. 11. Bilateral hip replacement. 12. Appendectomy. 13. Hysterectomy. 14. Previous history of bowel resection for the colon cancer. SOCIAL HISTORY: Cigarettes, alcohol, drugs - negative. 12-point review of systems is negative for the above problem. The patient is a well-developed, thin white female in no obvious acute distress. Appears stated age. Chest is clear. Cardiovascular Exam: Showed irregular rhythm. No murmurs or gallops. Normal physiological split, S1, S2. Abdomen: Soft, nontender. No masses, guarding, rebound, hepatosplenomegaly. Bowel sounds positive. Extremities: No cyanosis, clubbing, edema. LABORATORY STUDIES: On admission shows a white count of 5400, hemoglobin and hematocrit was 6.4 and 22.8. The patient's INR was 1.23. The patient's chemistry was normal on admission. The patient's imaging studies on admission were noncontributory to the above problem. ANALYSIS: Anemia of unknown etiology in a patient who is status post colon cancer resection. Plan will be set the patient up for an upper and lower endoscopy for further evaluation of her anemia. The patient has been given 2 units of packed cells, and her most recent hemoglobin and hematocrit is 10.4 and 33.6. PLAN: 1. Esophagogastroduodenoscopy (EGD) and colonoscopy. 2. Xarelto needs to be stopped.
[2019-11-21] VITALS (8 sets, daily range): BP systolic 127–178; BP diastolic 59–75
[2019-11-21] MEDS ORDERED: GLUCOSE 4 GM CHEW TABLET PO PRN (03:45)
[2019-11-21] MEDS ORDERED: GLUCAGON FOR INJ 1 MG VIAL (J1610) SC PRN (03:45)
[2019-11-21] MEDS ORDERED: DEXTROSE 50% 50 ML SYRINGE IV PRN (03:45)
[2019-11-21] MEDS: NS 1,000 ML IV SCH ×3 (04:07→15:30)
[2019-11-21] MEDS: SLF 3 ML SYR IV SCH ×3 (05:12→20:28)
[2019-11-21 05:55] LABS: BASO % 0.3 % (0.0-1.0); EOS # 0.1 10^3/uL (0.0-0.5); EOS % 1.6 % (0.0-3.0); HEMATOCRIT 33.7 % (36.0-47.0); HEMOGLOBIN 10.5 g/dl (12.0-15.5); LYMPH # 1.5 10^3/uL (1.5-5.0); LYMPH % 20.6 % (24.0-44.0); MEAN CORPUSCULAR HEMOGLOBIN 27.3 pg (27.0-33.0); MEAN CORPUSCULAR HGB CONC 31.2 g/dl (32.0-36.5); MEAN CORPUSCULAR VOLUME 87.5 fl (80.0-96.0); MONO # 0.9 10^3/uL (0.0-0.8); MONO % 11.8 % (0.0-5.0); NEUTROPHILS # 4.8 10^3/uL (1.5-8.5); NEUTROPHILS % 65.3 % (36.0-66.0); PLATELET COUNT, AUTOMATED 279 10^3/uL (150-450); RED BLOOD COUNT 3.85 10^6/uL (4.00-5.40); WHITE BLOOD COUNT 7.4 10^3/uL (4.0-10.0)
[2019-11-21 06:15] LABS: CALCIUM LEVEL 8.5 MG/DL (8.8-10.2); GLOMERULAR FILTRATION RATE 56.4 (>32); POTASSIUM SERUM 4.1 MEQ/L (3.5-5.1)
[2019-11-21] MEDS: DONEPEZIL 5 MG TAB PO SCH (09:10)
[2019-11-21] MEDS: ATORVASTATIN 10 MG TAB PO SCH (09:10)
[2019-11-21] MEDS: CYANOCOBALAMIN 1,000 MCG/ML VIAL (J3420) IM SCH (09:10)
[2019-11-21] MEDS: PANTOPRAZOLE 40MG INJ (PROTONIX) (C9113) IV SCH ×2 (09:10→20:28)
[2019-11-21] MEDS: levETIRAcetam 250MG TABLET (KEPPRA) PO SCH ×2 (09:11→20:28)
[2019-11-21] MEDS: METOPROLOL SUCC (TopROL XL) 50MG **XL** TAB PO SCH (09:11)
[2019-11-21] MEDS: ESCITALOPRAM OXALATE 10 MG TAB (LEXAPRO) PO SCH (09:11)
[2019-11-21] MEDS: DIGOXIN 0.125 MG TAB PO SCH (09:11)
--- NOTE | 2019-11-21 11:18 | IPNPDOC ---
Text Note Date of Service The patient was seen on 11/21/19. NOTE Subjective: -Doing well this morning, no complaints -Tolerated golytely prep ok -Pending scoping with Dr. Santiago this AM -On maintenance IVF while NPO Objective: Vitals: Hemodynamically stable and afebrile, see below General: Awake, alert, NAD HEENT: NCAT, PERRLA, EOMI, MMM Neck: No JVD or adenopathy, supple Pulm: CTAB Cardaic: 2/6 systolic murmur, otherwise RRR Abd: Normoactive, soft, nontender and no organomegaly or masses palpated Ext: WWP, no LE edema Labs: Reviewed Hgb 10.5, Hct 33.7, WBC 7.4, Platelets 279, K 4.1, Cr 1.00 84 year old W who was admitted as a transfer from [facility] for syncope and found to have symptomatic anemia due to GIB with +FOBT, now s/p pRBCs transfusion with stable H/H and pending EGD/colonoscopy today. Symptomatic anemia -Most likely 2/2 chronic GIB bleed -s/p IV iron and IV vitamin B12 -pending Colonoscopy/ EGD this AM, of note with a remote history of colon cancer -continue BID PPI -continue holding home Xarelto -consulted GI, Dr Santiago, pending scoping this AM -Daily H/H Hiatal hernia/ GERD -h/o hiatal hernia surgery -PPI as above Syncope -Likely due to severe anemia, however with a h/o afib, continue monitoring with telemetry -CT head from outside hospital on 11/17/19 was negative for any acute events -no clinically significant stenotic disease on carotid dopplers. Paroxysmal Afib -currently in sinus -s/p PPM -continue digoxin -continue metoprolol -continue holding Xarelto Dementia -continue donepezil, escitalopram Seizure disorder -continue keppra h/o TIAs and Stroke -continue statin -hold xarelto in the setting of recent GIB Hypertension -continue home metoprolol Dispo: PCU pending EGD/colo today for GIB VS,Fishbone, I+O VS, Fishbone, I+O Laboratory Tests 11/21/19 05:30 Vital Signs Date Time Temp Pulse Resp B/P (MAP) Pulse Ox O2 Delivery O2 Flow Rate FiO2 11/21/19 04:00 98.0 71 16 127/59 (81) 100 Room Air 11/19/19 08:00 3.0 I&O- Last 24 Hours up to 6 AM 11/21/19 06:00 Intake Total 1460 ml Output Total 520 ml Balance 940 ml RAFAEL SANCHEZ MD Nov 21, 2019 08:46
[2019-11-21] MEDS ORDERED: PROPOFOL 200 MG/20 ML VIAL As Ordered ONE ×2 (12:41→13:14)
[2019-11-21] MEDS ORDERED: LIDOCAINE 2% INJ 100 MG/5 ML SDV (FOR ANES.) As Ordered ONE (12:41)
--- NOTE | 2019-11-21 13:42 | ROOR ---
Patient Name: Joanie Clark Procedure Date: 11/21/2019 12:55 PM Date of : 1935 Age: 84 Room: [facility] Gender: Female Note Status: Finalized Procedure: Colonoscopy to anastomosis Indications: Unexplained iron deficiency anemia Providers: Bertin Santiago MD Referring MD: 2. Inpatient 2. Inpatient Requesting Provider: Medicines: Monitored Anesthesia Care Complications: No immediate complications. Procedure: Pre-Anesthesia Assessment: - The heart rate, respiratory rate, oxygen saturations, blood pressure, adequacy of pulmonary ventilation, and response to care were monitored throughout the procedure. The Colonoscope was introduced through the anus and advanced to the ileocolonic anastomosis. The colonoscopy was performed without difficulty. The patient tolerated the procedure well. The quality of the bowel preparation was excellent. Findings: The perianal and digital rectal examinations were normal. Non-bleeding internal hemorrhoids were found during retroflexion. The hemorrhoids were small and Grade I (internal hemorrhoids that do not prolapse). Multiple small and large-mouthed diverticula were found in the recto-sigmoid colon, sigmoid colon and descending colon. There was evidence of a prior end-to-end ileo-colonic anastomosis in the cecum. This was patent. The anastomosis was traversed. The exam was otherwise without abnormality. Impression: - Non-bleeding internal hemorrhoids. - Diverticulosis in the recto-sigmoid colon, in the sigmoid colon and in the descending colon. - Patent end-to-end ileo-colonic anastomosis. - The examination was otherwise normal. - No specimens collected. - The examination was otherwise normal. Recommendation: - Patient has a contact number available for emergencies. The signs and symptoms of potential delayed complications were discussed with the patient. Return to normal activities tomorrow. Written discharge instructions were provided to the patient. - High fiber diet. - Return patient to [facility] for ongoing care. - Continue present medications. - Return to referring physician. - The findings and recommendations were discussed with the patient's family. Bertin Santiago MD Bertin Santiago MD 11/21/2019 1:41:48 PM Electronically signed by Bertin Santiago MD Number of Addenda: 0 Note Initiated On: 11/21/2019 12:55 PM Estimated Blood Loss: Estimated blood loss: none.
[2019-11-22 04:00] VITALS: BP 150/60
[2019-11-22] MEDS: SLF 3 ML SYR IV SCH (05:46)
[2019-11-22 06:19] LABS: BASO % 0.3 % (0.0-1.0); EOS # 0.1 10^3/uL (0.0-0.5); EOS % 1.4 % (0.0-3.0); HEMATOCRIT 32.9 % (36.0-47.0); LYMPH # 1.8 10^3/uL (1.5-5.0); LYMPH % 23.4 % (24.0-44.0); MEAN CORPUSCULAR HEMOGLOBIN 26.8 pg (27.0-33.0); MEAN CORPUSCULAR HGB CONC 30.4 g/dl (32.0-36.5); MEAN CORPUSCULAR VOLUME 88.2 fl (80.0-96.0); MONO # 0.9 10^3/uL (0.0-0.8); MONO % 11.4 % (0.0-5.0); NEUTROPHILS # 4.8 10^3/uL (1.5-8.5); PLATELET COUNT, AUTOMATED 269 10^3/uL (150-450); RED BLOOD COUNT 3.73 10^6/uL (4.00-5.40); WHITE BLOOD COUNT 7.7 10^3/uL (4.0-10.0)
[2019-11-22 06:45] LABS: BLOOD UREA NITROGEN 7 MG/DL (7-18); CALCIUM LEVEL 7.8 MG/DL (8.8-10.2); CARBON DIOXIDE LEVEL 23 MEQ/L (21-32); CHLORIDE LEVEL 115 MEQ/L (98-107); CREATININE FOR GFR 0.86 MG/DL (0.55-1.30); GLOMERULAR FILTRATION RATE > 60.0 (>32); GLUCOSE, FASTING 93 MG/DL (70-100); POTASSIUM SERUM 3.7 MEQ/L (3.5-5.1); SODIUM LEVEL 144 MEQ/L (136-145)
[2019-11-22 07:32] VITALS: BP 174/73
[2019-11-22] MEDS: DONEPEZIL 5 MG TAB PO SCH (09:25)
[2019-11-22] MEDS: ESCITALOPRAM OXALATE 10 MG TAB (LEXAPRO) PO SCH (09:25)
[2019-11-22] MEDS: METOPROLOL SUCC (TopROL XL) 50MG **XL** TAB PO SCH (09:26)
[2019-11-22] MEDS: ATORVASTATIN 10 MG TAB PO SCH (09:26)
[2019-11-22] MEDS: PANTOPRAZOLE 40MG INJ (PROTONIX) (C9113) IV SCH (09:26)
[2019-11-22] MEDS: DIGOXIN 0.125 MG TAB PO SCH (09:26)
[2019-11-22] MEDS: levETIRAcetam 250MG TABLET (KEPPRA) PO SCH (09:26)
--- NOTE | 2019-11-22 10:49 | DS.PDOC ---
Discharge Summary General Date of Admission Nov 18, 2019 at 15:28 Date of Discharge 11/22/2019 Attending Physician: RAFAEL SANCHEZ MD Specialist/Consultants Involve: Bertin Santiago Discharge Summary PROCEDURES PERFORMED DURING STAY: colonoscopy on 11/21/2019 ADMITTING DIAGNOSES: 1. GIB DISCHARGE DIAGNOSES: 1. Lower GIB with diverticulosis and internal hemorrhoids 2. Remote history of colon cancer s/p surgery and chemo 3. CKD 3 4. Histoyr of seizures 5. History brain aneurysm surgery more 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 6. Paroxysmal Afib on xarelto 7. pacemaker in place 8. Hypertension 9. GERD 10. History of hiatal hernia s/p hiatal hernia surgery 11. chronic back pain 12. Iron deficiency 13. Vit B12 deficiency. COMPLICATIONS/CHIEF COMPLAINT: Gi Bleed. HISTORY OF PRESENT ILLNESS: 84 year old W who presented to the ED at [facility] after 3 syncopal episodes the day prior to presentation. Her ED work up revealed a Hgb of 6.4, from her last Hgb from jul 2019 was 10.7 and 12.7 . She was also found to be guaiac positive and was transferred to [facility] for symptomatic anemia 2/2 a GIB. HOSPITAL COURSE: At [facility], she reported feeling very weak and light headed for the past 1 month, with a total of 9 presyncopal and syncopal episodes in the past 3 weeks, as well as soft melena for 2 months and had not taken any iron recently because it made her constipated but had remained on Vit B12 shots. She otherwise did not have any abdominal pain or vomiting. While here at [facility] she received a total of 2u pRBC with stabilization of her H/H and today is 10/32.9. GI was consulted and she had a colonoscopy on 11/21 that revealed diverticulosis and non bleeding internal hemorrhoids and no new masses or polyps with a patent anastomosis from her prior surgery for remote colon CA. GI recommended a high fiber diet and continuation of her home PPI and xarelto. She also received IV iron and B12 and was placed on BID PPI. She is now being discharged home after clearing PT to follow up with her PCP and GI outpatient. DISCHARGE MEDICATIONS: Please see below. ALLERGIES: Please see below. PHYSICAL EXAMINATION ON DISCHARGE: VITAL SIGNS: Please see below. Vitals: Hemodynamically stable and afebrile, see below General: Awake, alert, NAD HEENT: NCAT, PERRLA, EOMI, MMM Neck: No JVD or adenopathy, supple Pulm: CTAB Cardaic: 2/6 systolic murmur, otherwise RRR Abd: Normoactive, soft, nontender and no organomegaly or masses palpated Ext: WWP, no LE edema LABORATORY DATA: Please see below. IMAGING: Carotid doppler vascular US for syncope presentation: RIGHT CAROTID: The right common carotid artery shows minimal diffuse intimal thickening. There is mild mixed plaquing in the bulb, proximal ICA, and proximal ECA on the right side on two-dimensional scanning. This appears unchanged. Color flow and spectral Doppler interrogation show normal waveforms and velocities. VELOCITY CHART RIGHT CAROTID: Right CCA PSV 79 cm/s Right ICA PSV 75 EDV 27 Right ECA PSV 78 Right ICA/CCA ratio normal 1.0. IMPRESSION: Less than 50% category narrowing in the right ICA by Doppler velocity criteria. Doppler velocities are normal. LEFT CAROTID: The left common carotid artery shows mild diffuse intimal thickening. There is moderate mixed plaquing in the left carotid bulb and proximal ICA and ECA on two-dimensional scanning. Color flow and spectral Doppler interrogation are unremarkable. VELOCITY CHART LEFT CAROTID: Left CCA PSV 77 cm/s Left ICA PSV 96 EDV 17 Left ECA PSV 80 Left ICA/CCA ratio normal 1.2. IMPRESSION: Less than 50% category narrowing by Doppler velocity criteria. Doppler velocities are slightly higher than on the prior study. Findings: The perianal and digital rectal examinations were normal. Non-bleeding internal hemorrhoids were found during retroflexion. The hemorrhoids were small and Grade I (internal hemorrhoids that do not prolapse). Multiple small and large-mouthed diverticula were found in the recto-sigmoid colon, sigmoid colon and descending colon. There was evidence of a prior end-to-end ileo-colonic anastomosis in the cecum. This was patent. The anastomosis was traversed. The exam was otherwise without abnormality. Impression: - Non-bleeding internal hemorrhoids. - Diverticulosis in the recto-sigmoid colon, in the sigmoid colon and in the descending colon. - Patent end-to-end ileo-colonic anastomosis. - The examination was otherwise normal. - No specimens collected. - The examination was otherwise normal. Recommendation: - Patient has a contact number available for emergencies. The signs and symptoms of potential delayed complications were discussed with the patient. Return to normal activities tomorrow. Written discharge instructions were provided to the patient. - High fiber diet. - Return patient to hospital [facility] for ongoing care. - Continue present medications. - Return to referring physician. - The findings and recommendations were discussed with the patient's family. PROGNOSIS: Good ACTIVITY: As tolerated DIET: High fiber diet DISCHARGE PLAN: Home with GI and PCP follow up DISPOSITION: Home DISCHARGE INSTRUCTIONS: 1. Please follow up with your PCP and GI in the next 7-10d ITEMS TO FOLLOWUP ON ON OUTPATIENT: 1. GIB 2. Anticoagulation status given history of GIB and pAFib DISCHARGE CONDITION: Stable TIME SPENT ON DISCHARGE: 40 minutes. Vital Signs/I&Os Vital Signs Date Time Temp Pulse Resp B/P (MAP) Pulse Ox O2 Delivery O2 Flow Rate FiO2 11/22/19 07:32 97.2 73 18 174/73 (106) 96 Room Air 11/19/19 08:00 3.0 I&O- Last 24 Hours up to 6 AM 11/22/19 06:00 Intake Total 2435 ml Output Total 0 ml Balance 2435 ml Laboratory Data Labs 24H Laboratory Tests 2 11/21/19 11:36: Bedside Glucose (Misc Panel) 89 11/21/19 17:22: Bedside Glucose (Misc Panel) 145H 11/22/19 05:43: Immature Granulocyte % (Auto) 0.5, Neutrophils (%) (Auto) 63.0, Lymphocytes (%) (Auto) 23.4L, Monocytes (%) (Auto) 11.4H, Eosinophils (%) (Auto) 1.4, Basophils (%) (Auto) 0.3, Neutrophils # (Auto) 4.8, Lymphocytes # (Auto) 1.8, Monocytes # (Auto) 0.9H, Eosinophils # (Auto) 0.1, Basophils # (Auto) 0.0, Nucleated Red Blood Cells % (auto) 0.0, Anion Gap 6L, Glomerular Filtration Rate > 60.0, Calcium Level 7.8L CBC/BMP Laboratory Tests 11/22/19 05:43 FSBS Laboratory Tests Test 11/21/19 11:36 11/21/19 17:22 Range/Units Bedside Glucose (Misc Panel) 89 145 83-110 MG/DL Discharge Medications Scheduled Atorvastatin Calcium (Atorvastatin Calcium) 10 Mg Tablet, 10 MG PO DAILY, (Reported) Cholecalciferol (Vitamin D3) (Vitamin D3) 50,000 Unit Capsule, 50,000 UNIT PO QWEEK, (Reported) Cyclobenzaprine HCl (Cyclobenzaprine HCl) 10 Mg Tablet, 10 MG PO TID, (Reported) Digoxin (Digoxin) 125 Mcg Tablet, 125 MCG PO DAILY, (Reported) Donepezil HCl (Donepezil HCl) 10 Mg Tablet, 10 MG PO DAILY, (Reported) Escitalopram Oxalate (Escitalopram Oxalate) 20 Mg Tablet, 20 MG PO DAILY, (Reported) Ferrous Sulfate (Iron) 325 Mg Tablet, 325 MG PO DAILY, (Reported) Levetiracetam (Levetiracetam) 250 Mg Tablet, 250 MG PO BID, (Reported) Melatonin (Melatonin) 5 Mg Capsule, 5 MG PO QHS, (Reported) Pantoprazole Sodium (Pantoprazole Sodium) 40 Mg Tablet.dr, 40 MG PO DAILY, (Rep orted) Potassium Chloride (Potassium Chloride) 10 Meq Capsule.er, 10 MEQ PO DAILY, (Reported) TAKES WITH DIURETIC PRN - WILL VERIFY WITH Ranitidine Hcl (Ranitidine HCl) 150 Mg Tablet, 1 TAB PO BID, (Reported) Rivaroxaban (Xarelto) 15 Mg Tablet, 15 MG PO DAILY, (Reported) Vit A/Vit C/Vit E/Zinc/Copper (Preservision Areds Softgel) 1 Each Capsule, 1 CAP PO BID, (Reported) Scheduled PRN Albuterol Sulfate (Ventolin Hfa) 18 Gm Hfa.aer.ad, 2 PUFF INH Q4-6HP PRN for wheezing, (Reported) Metoprolol Succinate (Metoprolol Succinate) 50 Mg Tab.er.24h, 50 MG PO DAILY PRN for HYPERTENSION, (Reported) Metoprolol Tartrate (Metoprolol Tartrate) 25 Mg Tablet, 25 MG PO DAILY PRN for HYPERTENSION, (Reported) Ondansetron HCl (Zofran) 4 Mg Tablet, 4 MG PO DAILY PRN for NAUSEA OR VOMITING, (Reported) Tramadol HCl (Tramadol HCl) 50 Mg Tablet, 50 MG PO Q8H PRN for PAIN, (Reported) Allergies Coded Allergies: propoxyphene (Verified Allergy, Unknown, 04/26/19) RAFAEL SANCHEZ V. MD Nov 22, 2019 09:38
== END 2019-11-22 13:15 | disposition home or self-care (01) | DRG 812 ==
LOC: ENRESERV 12:43 → M PCU 15:28
PROVIDERS: ADMIT Internal Medicine; ATTEND Internal Medicine
PROC: 30233N1 Transfusion of Nonautologous Red Blood Cells into Peripheral Vein, Percutaneous Approach (ICD-10-PCS; principal; 2019-11-18)
PROC: 0DJD8ZZ Inspection of Lower Intestinal Tract, Via Natural or Artificial Opening Endoscopic (ICD-10-PCS; 2019-11-21)
DX: D50.9 Iron deficiency anemia, unspecified (principal); K92.2 Gastrointestinal hemorrhage, unspecified; N18.3 Chronic kidney disease, stage 3 (moderate); I48.0 Paroxysmal atrial fibrillation; Z79.01 Long term (current) use of anticoagulants; E53.8 Deficiency of other specified B group vitamins; K21.9 Gastro-esophageal reflux disease without esophagitis; Z95.0 Presence of cardiac pacemaker; I12.9 Hypertensive chronic kidney disease with stage 1 through stage 4 chronic kidney disease, or unspecified chronic kidney disease; K57.30 Diverticulosis of large intestine without perforation or abscess without bleeding; K64.0 First degree hemorrhoids; Z85.038 Personal history of other malignant neoplasm of large intestine; Z79.899 Other long term (current) drug therapy; Z88.8 Allergy status to other drugs, medicaments and biological substances; F03.90 Unspecified dementia, unspecified severity, without behavioral disturbance, psychotic disturbance, mood disturbance, and anxiety; Z86.73 Personal history of transient ischemic attack (TIA), and cerebral infarction without residual deficits; Z96.641 Presence of right artificial hip joint; Z96.642 Presence of left artificial hip joint; G40.909 Epilepsy, unspecified, not intractable, without status epilepticus; F17.210 Nicotine dependence, cigarettes, uncomplicated

== ENCOUNTER → 2021-08-12 | Outpatient (REF) | payer MEDICARE, OTHER ==
[~2021-08-12] MED LIST changes: +ATOR1TAB19 PO; +CYCL-707 PO; +DIGO0.123 PO; +DONE10TA90 PO; +ESCI20TA16 PO; -HEPARIN 1,000 UNITS/ML 10ML VIAL (FOR RADIOLOGY& DIALYSIS ONLY) As Ordered ONE; +IRON65TA2 PO; -ISOVUE-300 61% 50ML VIAL (Q9967) As Ordered ONE; +LEVE250T5 PO; -LIDOCAINE 2% MDV 20 ML VIAL As Ordered ONE; +MELA5CAP2 PO; +METO1TAB7 PO; +METO25TA4 PO; -MIDAZOLAM INJ 2 MG/2 ML VIAL (J2250) As Ordered ONE; +PANT-23 PO; +POTA10CA32 PO; +PRESCAP PO; +RANI15TA PO; +TRAM50TA2 PO; +VENTAER INH; +VITA1CAP25 PO; +XARE15TA PO; +ZOFR4TAB16 PO; -fentaNYL 100 MCG/2 ML INJECTION (J3010) As Ordered ONE
== END ==
LOC: M LAB REF 17:40
PROVIDERS: ATTEND Internal Medicine Nephrology
DX: E83.42 Hypomagnesemia (principal)

== ENCOUNTER → 2021-10-16 | Outpatient (REF) | payer MEDICARE, OTHER ==
[2021-10-16 14:27] LABS: MAGNESIUM LEVEL 2.2 MG/DL (1.8-2.4); PERCENT SATURATION 44.3 % (13.2-45.0)
== END ==
LOC: M LAB REF 13:12
PROVIDERS: ATTEND Nurse Practitioner Family
DX: D50.9 Iron deficiency anemia, unspecified (principal); N18.32 Chronic kidney disease, stage 3b; E83.42 Hypomagnesemia

== ENCOUNTER → 2022-08-20 | Outpatient (REF) | payer MEDICARE, OTHER ==
[2022-08-20 19:01] LABS: PERCENT SATURATION 5.3 % (13.2-45.0)
== END ==
LOC: M LAB REF 17:01
PROVIDERS: ATTEND Nurse Practitioner Family
DX: N39.0 Urinary tract infection, site not specified (principal); D50.9 Iron deficiency anemia, unspecified

== ENCOUNTER 2023-07-22 14:50 | Emergency (ER) | payer MEDICARE, OTHER ==
[~2023-07-22] VITALS: Ht 157.5 cm; Wt 56.1 kg
[2023-07-22 15:05] VITALS: TEMP 97
[2023-07-22 15:41] LABS: BASO % 0.4 % (0.0-1.0); EOS # 0.1 10^3/uL (0.0-0.5); EOS % 0.9 % (0.0-3.0); HEMATOCRIT 30.3 % (36.0-47.0); HEMOGLOBIN 8.6 g/dl (12.0-15.5); LYMPH % 12.7 % (24.0-44.0); MEAN CORPUSCULAR HEMOGLOBIN 24.4 pg (27.0-33.0); MEAN CORPUSCULAR HGB CONC 28.4 g/dl (32.0-36.5); MEAN CORPUSCULAR VOLUME 86.1 fl (80.0-96.0); MONO # 0.5 10^3/uL (0.0-0.8); MONO % 6.8 % (2.0-8.0); NEUTROPHILS # 6.2 10^3/uL (1.5-8.5); NEUTROPHILS % 78.6 % (36.0-66.0); PLATELET COUNT, AUTOMATED 264 10^3/uL (150-450); RED BLOOD COUNT 3.52 10^6/uL (4.00-5.40); WHITE BLOOD COUNT 7.9 10^3/uL (4.0-10.0)
[2023-07-22 15:50] VITALS: BP 147/74; O2SAT 98
[2023-07-22 16:05] LABS: CALCIUM LEVEL 9.4 MG/DL (8.3-10.6); CREATININE FOR GFR 1.59 MG/DL (0.55-1.30); GLOMERULAR FILTRATION RATE 32.7 (>32); MAGNESIUM LEVEL 1.9 MG/DL (1.8-2.4); POTASSIUM SERUM 3.6 MMOL/L (3.5-5.1)
[2023-07-22 16:07] LABS: FREE T4 0.91 NG/DL (0.89-1.76); THYROID STIMULATING HORMONE 2.593 uIU/ML (0.55-4.78)
== END 2023-07-22 17:56 | disposition home or self-care (01) ==
LOC: M ED 14:50 → EDBD 14:50 → M ED 17:56
DX: R55 Syncope and collapse (principal); I10 Essential (primary) hypertension; K58.9 Irritable bowel syndrome, unspecified; K21.9 Gastro-esophageal reflux disease without esophagitis; N18.9 Chronic kidney disease, unspecified; Z79.02 Long term (current) use of antithrombotics/antiplatelets; Z88.8 Allergy status to other drugs, medicaments and biological substances; Z79.52 Long term (current) use of systemic steroids; Z79.83 Long term (current) use of bisphosphonates; Z79.899 Other long term (current) drug therapy

== ENCOUNTER → 2023-07-22 | Outpatient (REF) | payer MEDICARE, OTHER ==
[~2023-07-22] MED LIST changes: -POTA10CA32 PO; +POTA10CA60 PO
[2023-07-22 17:49] LABS: PERCENT SATURATION 2.4 % (13.2-45.0)
[2023-07-22 17:52] LABS: FERRITIN 10.8 NG/ML (7.3-270.7)
== END ==
LOC: M LAB REF 16:44
PROVIDERS: ATTEND Nurse Practitioner Family
DX: N39.0 Urinary tract infection, site not specified (principal); D50.9 Iron deficiency anemia, unspecified

== ENCOUNTER → 2023-08-19 | Outpatient (REF) | payer MEDICARE, OTHER ==
[2023-08-19 17:54] LABS: PERCENT SATURATION 1.4 % (13.2-45.0)
[2023-08-19 17:57] LABS: FERRITIN 4.5 NG/ML (7.3-270.7)
== END ==
LOC: M LAB REF 16:47
PROVIDERS: ATTEND Nurse Practitioner Family
DX: N39.0 Urinary tract infection, site not specified (principal); D50.9 Iron deficiency anemia, unspecified

== ENCOUNTER → 2023-12-06 | Outpatient (REF) | payer MEDICARE, OTHER ==
[2023-12-06 19:41] LABS: FERRITIN 21.7 NG/ML (7.3-270.7)
== END ==
LOC: M LAB REF 17:48
PROVIDERS: ATTEND Nurse Practitioner Family
DX: D50.9 Iron deficiency anemia, unspecified (principal)

== ENCOUNTER → 2024-03-06 | Outpatient (REF) | payer MEDICARE, OTHER ==
[2024-03-07 18:05] LABS: FOLATE 17.7 NG/ML (>5.4)
== END ==
LOC: M LAB REF 17:11
PROVIDERS: ATTEND Nurse Practitioner Family
DX: D64.9 Anemia, unspecified (principal)

== ENCOUNTER 2024-05-03 15:10 | Emergency (ER) | payer OTHER, MEDICARE ==
[2024-05-03] VITALS (10 sets, daily range): BP systolic 118–157; BP diastolic 56–67; TEMP 96.3–98.6; O2SAT 98–100
[~2024-05-03] VITALS: Ht 157.5 cm; Wt 55.6 kg
[~2024-05-03 15:10] MED LIST changes: -POTA10CA60 PO; +POTA10CA70 PO
[2024-05-03 16:21] LABS: BASO % 0.2 % (0.0-1.0); EOS # 0.1 10^3/uL (0.0-0.5); EOS % 0.9 % (0.0-3.0); LYMPH # 1.2 10^3/uL (1.5-5.0); LYMPH % 17.9 % (24.0-44.0); MEAN CORPUSCULAR HEMOGLOBIN 30.8 pg (27.0-33.0); MEAN CORPUSCULAR HGB CONC 28.6 g/dl (32.0-36.5); MEAN CORPUSCULAR VOLUME 107.7 fl (80.0-96.0); MONO # 0.9 10^3/uL (0.0-0.8); MONO % 13.1 % (2.0-8.0); NEUTROPHILS # 4.3 10^3/uL (1.5-8.5); NEUTROPHILS % 66.7 % (36.0-66.0); PLATELET COUNT, AUTOMATED 263 10^3/uL (150-450); RED BLOOD COUNT 1.56 10^6/uL (4.00-5.40); WHITE BLOOD COUNT 6.5 10^3/uL (4.0-10.0)
[2024-05-03 16:22] LABS: HEMATOCRIT 16.8 % (36.0-47.0)
[2024-05-03 16:25] LABS: HEMOGLOBIN 4.8 g/dl (12.0-15.5)
[2024-05-03 16:34] LABS: INR 1.44; PARTIAL THROMBOPLASTIN TIME 31.6 SECONDS (24.8-34.2); PROTHROMBIN TIME 17.1 SECONDS (12.5-14.5)
[2024-05-03] MEDS: PANTOPRAZOLE 40MG VIAL IV ONE (16:41)
[2024-05-03] MEDS: NS 1,000 ML IV ONE (16:43)
[2024-05-03 16:52] LABS: CK-MB VALUE MASS 1.2 NG/ML (<3.6); LIPASE 21 U/L (12-53)
[2024-05-03 16:54] LABS: ALKALINE PHOSPHATASE 41 U/L (46-116); ALT/SGPT 12 U/L (7.0-40); AST/SGOT 11 U/L (<34); BILIRUBIN,DIRECT < 0.1 MG/DL (<0.4); BILIRUBIN,TOTAL 0.2 MG/DL (0.3-1.2); BLOOD UREA NITROGEN 26 MG/DL (9-23); CALCIUM LEVEL 9.3 MG/DL (8.3-10.6); CARBON DIOXIDE LEVEL 26 MMOL/L (20-31); CHLORIDE LEVEL 111 MMOL/L (98-107); CPK CREATINE PHOSPHOKINASE 43 U/L (34-145); CREATININE FOR GFR 1.38 MG/DL (0.55-1.30); GLOMERULAR FILTRATION RATE 38.5 (>32); GLUCOSE, FASTING 111 MG/DL (74-106); MB/CK RELATIVE INDEX 2.79 (< OR =4); SODIUM LEVEL 141 MMOL/L (136-145)
[2024-05-03] MEDS ORDERED: ISOVUE-370 76% 100ML VIAL As Ordered ONE (17:07)
[2024-05-03 18:10] LABS: MAGNESIUM LEVEL 2.2 MG/DL (1.8-2.4)
== END 2024-05-03 22:59 | disposition short-term general hospital (02) ==
LOC: M ED 15:10 → EDBD 15:10 → M ED 22:59
DX: K92.2 Gastrointestinal hemorrhage, unspecified (principal); K80.20 Calculus of gallbladder without cholecystitis without obstruction; J91.8 Pleural effusion in other conditions classified elsewhere; J98.11 Atelectasis; N28.1 Cyst of kidney, acquired; K57.92 Diverticulitis of intestine, part unspecified, without perforation or abscess without bleeding; J45.909 Unspecified asthma, uncomplicated; G40.909 Epilepsy, unspecified, not intractable, without status epilepticus; Z88.5 Allergy status to narcotic agent; Z96.643 Presence of artificial hip joint, bilateral; Z79.02 Long term (current) use of antithrombotics/antiplatelets; Z79.52 Long term (current) use of systemic steroids; Z79.83 Long term (current) use of bisphosphonates; Z79.810 Long term (current) use of selective estrogen receptor modulators (SERMs); Z79.899 Other long term (current) drug therapy
CPT/HCPCS: 36430; 74174; 80048; 80076; 82550; 82553; 83605; 83690; 83735; 84484; 85025; 85610; 85730; 86850; 86900; 86901; 86920; 93005; 93041; 96361; 96374; 99285; C9113; P9016; Q9967